=== PATIENT | female | born 1980 | race Caucasian/White ===

== ENCOUNTER → 2020-12-19 | Outpatient (CLI) | payer MEDICAID ==
--- NOTE | 2020-12-19 10:48 | RAD ---
XR BILATERAL HIP (WITH OR WITHOUT PELVIS) 2 VIEWS_RIGHT Clinical Indication: Reason: RIGHT HIP PAIN / Spl. Instructions: / History: Comparison: None. Findings: There is no acute fracture or dislocation of the right hip. The mineralization is normal. The hip candy nt spaces are symmetric. No acute pelvic fracture. The sacroiliac joints are symmetric. Soft tissues unremarkable. IMPRESSION: No acute bone abnormality. Electronically signed by: Isidoro Corey MD (12/19/2020 10:46 AM) [id number]
== END ==
LOC: RAD 10:11
PROVIDERS: ATTEND Physician Assistant Medical
DX: M25.551 Pain in right hip (principal)
CPT/HCPCS: 73502